=== PATIENT | female | born 1960 | race Caucasian/White ===

== ENCOUNTER → 2024-06-24 | Outpatient (CLI) | payer MEDICARE, MEDICAID, SELFPAY ==
--- NOTE | 2024-06-24 09:02 | XR_ITS ---
EXAMINATION: Cervical spine, 5 views Technique: Cervical spine AP, AP odontoid, lateral, bilateral obliques, 5 views Exam date and time: June 24, 2024 0915 hours INDICATIONS: Neck pain years. FINDINGS: Straightening normal cervical lordosis No cervical fracture Advanced degenerative disc disease C4-C5, C5-C6, C6-C7 with moderate bilateral neural foraminal stenosis at these levels The odontoid is intact IMPRESSION: Advanced degenerative disc disease C4-C5, C5-C6, C6-C7
== END | disposition home or self-care (01) ==
PROVIDERS: PCP Family Medicine; Referring Provider Physician Assistant; Visit Provider Physician Assistant
DX: M50.321 Other cervical disc degeneration at C4-C5 level (principal)
CPT/HCPCS: 72050

== ENCOUNTER 2025-04-07 17:02 | Emergency (ER) | payer MEDICARE, SELFPAY ==
[2025-04-07 17:25] VITALS: BP 107/60; PULSE 86; RESP 20; TEMP 37.1; O2SAT 97
--- NOTE | 2025-04-07 17:29 | EKG_ITS ---
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
--- NOTE | 2025-04-07 17:29 | XR_ITS ---
Examination: PA lateral chest 2 views Technique: Upright PA lateral chest 2 views Date and time: April 07, 2025, 1741 hrs. Comparison 04/12/2024. Indications: Chest pain today. Findings: Pneumonia left base and lingular segment. No significant cardiac enlargement. Right lung clear. Prominent osteopenia. Impression: Pneumonia left base and lingular segment left upper lobe.
--- NOTE | 2025-04-07 17:29 | PD.EDRME ---
Rapid Medical Screening Exam RME Arrival date/time: 04/07/25 17:02 64-year-old female with a history of COPD, hypertension, hyperlipidemia presents to the emergency room with a chief complaint of left-sided sternal 8 out of 10 chest pain that radiates to the left arm, shortness of breath x 2 days I have greeted and performed a focused initial assessment of this patient. A comprehensive ED assessment and evaluation of the patient, analysis of all test results, and completion of the medical decision making process will be conducted by additional ED providers. Chief Complaint: Chest Pain Time Seen by Provider: 04/07/25 17:09 Vital signs: Vital Signs Temperature 98.7 F 04/07/25 17:25 Pulse Rate 86 04/07/25 17:25 Respiratory Rate 20 04/07/25 17:25 Blood Pressure 107/60 04/07/25 17:25 Pulse Oximetry (%) 97 04/07/25 17:25 Oxygen Delivery Method Room Air 04/07/25 17:25 Vital signs reviewed by provider: Yes
[2025-04-07 17:51] LABS: Basophils # (Auto) 0.1 Thou/mm3 (0.0-0.2); Basophils % (Auto) 0 % (0-2.5); Eosinophils # (Auto) 0.2 Thou/mm3 (0.0-0.5); Eosinophils % (Auto) 1 % (0-10); Hematocrit 41.3 % (36.0-46.0); Hemoglobin 14.0 g/dL (12.0-16.0); Immature Granulocytes Auto 0.14 Thou/mm3 (0.00-0.00); Lymphocytes # (Auto) 1.8 Thou/mm3 (1.0-4.8); Lymphocytes % (Auto) 13 % (10-50); Mean Corpuscular HGB Conc 33.9 g/dl (31.0-37.0); Mean Corpuscular Hemoglobin 29.3 pg (25.0-35.0); Mean Corpuscular Volume 86 fL (80-100); Monocytes # (Auto) 1.0 Thou/mm3 (0.0-0.8); Monocytes % (Auto) 7 % (0-12); Neutrophils # (Auto) 10.7 Thou/mm3 (1.8-7.7); Neutrophils % (Auto) 78 % (37-80); Nucleated Red Blood Cell # 0.00 Thou/mm3 (0.00-0.00); Nucleated Red Blood Cell % 0 /100 WBC (0); Platelet Count 218 Thou/mm3 (140-440); RDW Standard Deviation 40.1 fL (36.4-46.3); Red Blood Count 4.78 Miln/mm3 (4.00-5.20); White Blood Count 13.8 Thou/mm3 (3.6-11.0)
[2025-04-07 18:03] LABS: INR 1.0 (0.9-1.3); Partial Thromboplastin Time 20.8 Seconds (22.0-36.0); Prothrombin Time 10.6 Seconds (9.0-12.2)
[2025-04-07 18:05] LABS: Collection Type, Urine Clean Catch
[2025-04-07 18:05] LABS: B-Type Natriuretic Peptide < 20 pg/mL (0-100)
[2025-04-07 18:07] LABS: Alanine Aminotransferase 13 U/L (10-49); Albumin, Serum 4.5 gm/dL (3.4-4.8); Albumin/Globulin Ratio 2.1 (1.2-2.2); Alkaline Phosphatase 86 U/L (46-116); Anion Gap 8 (7-16); Aspartate Amino Transferase 21 U/L (0-34); BUN/Creatinine Ratio 28 Ratio (12-20); Bilirubin,Total 0.2 mg/dL (0.3-1.2); Blood Urea Nitrogen 28 mg/dL (9-23); Calcium 10.7 mg/dL (8.3-10.6); Calcium (Corrected) 10.7 mg/dL (8.5-10.1); Carbon Dioxide 31.8 mMol/L (20.0-31.0); Chloride 100 mMol/L (98-107); Creatinine (Component) 1.0 mg/dL (0.6-1.3); Estimated Creatinine Clearance 53.8 mL/min (>60); Globulin 2.1 gm/dL (2.3-3.5); Glucose 163 mg/dL (74-106); Magnesium 1.6 mg/dL (1.6-2.6); Osmolality,Calculated 288 (275-295); Potassium 3.8 mMol/L (3.4-5.1); Sodium 140 mMol/L (136-145); Total Protein 6.6 gm/dL (5.7-8.2); Troponin I < 0.020 ng/mL (0.0-0.045); eGFR > 60 See Note
[2025-04-07 18:17] LABS: Bilirubin,Urine Negative (Negative); Blood,Urine Negative (Negative); Clarity,Urine Clear (Clear/Hazy); Color,Urine Yellow (Lt Yel-Yel); Culture Indicated,Urine Not Indicated; Glucose, Urine Negative (Negative); Ketones,Urine Negative (Negative); Leukocyte Esterase,Urine Negative (Negative); Nitrite,Urine Negative (Negative); PH,Urine 6.5 (5.0-7.0); Protein,Urine Negative (Neg - Trace); RBC,Urine < 1 /hpf (0-3); Specific Gravity,Urine 1.013 (1.001-1.035); Squamous Epithelial Cell,Urine 1 /hpf (0-5); Urobilinogen,Urine Negative mg/dL (0.0-1.0); WBC,Urine < 1 /hpf (0-5)
[2025-04-07 18:23] LABS: Amphetamine/Methamp Scrn,U Negative (Negative); Barbiturate Screen,Urine Negative (Negative); Benzodiazepines Screen,Urine Negative (Negative); Benzoylecgonine Screen, Ur Negative (Negative); Fentanyl Screen,Urine Negative (Negative); Opiate Screen,Urine Negative (Negative); THC Screen,Urine Negative (Negative)
--- NOTE | 2025-04-07 18:57 | PD.EDCHEST ---
ED Chest Pain RME/HPI General Chief Complaint: Chest Pain Stated Complaint: CHEST/BACK PAIN; STAGE 4 COPD Time Seen by Provider: 04/07/25 17:09 Arrival date/time: 04/07/25 17:02 RME / HPI RME / HPI narrative: 04/07/25 17:02 64-year-old female with a history of COPD, hypertension, hyperlipidemia presents to the emergency room with a chief complaint of left-sided sternal 8 out of 10 chest pain that radiates to the left arm, shortness of breath x 2 days I have greeted and performed a focused initial assessment of this patient. A comprehensive ED assessment and evaluation of the patient, analysis of all test results, and completion of the medical decision making process will be conducted by additional ED providers. ------ See [facility] for Dr. Dominique's HPI documentation. Related Data Home Medications ?Medication ?Instructions ?Recorded ?Confirmed Albuterol Sulfate HFA (INHALER) 2 puff inhalation 6 TIMES DAILY 08/25/14 04/12/24 (PROVENTIL HFA (INHALER)) PRN WHEEZING #0 inhalations Cyclobenzaprine * (FLEXERIL *) 10 mg PO TID #0 tabs 08/25/14 04/12/24 albuterol sulfate 2.5 mg/3 mL 2.5 mg HHN 6 TIMES DAILY PRN 08/25/14 04/12/24 (0.083 %) solution for nebulization Shortness Of Breath #0 ea estradiol 1 mg tablet (Estrace) 1 mg PO QDAY #0 tabs 08/25/14 04/12/24 gabapentin 600 mg tablet 800 mg PO BID #0 tabs 08/25/14 04/12/24 amlodipine 5 mg tablet 5 mg PO DAILY 10/19/17 04/12/24 atorvastatin 40 mg tablet 40 mg PO QDAY 10/19/17 04/12/24 docusate sodium 250 mg capsule 250 mg PO QDAY 10/19/17 04/12/24 (Stool Softener) montelukast 10 mg tablet 10 mg PO DAILY 10/19/17 04/12/24 omeprazole 40 mg capsule,delayed 40 mg PO DAILY 10/19/17 04/12/24 release tizanidine 4 mg capsule 4 mg PO HS 10/19/17 04/12/24 trazodone 50 mg tablet 100 mg PO HS PRN sleeplessness 10/19/17 04/12/24 lisinopril 20 mg PO QDAY 03/09/19 04/12/24 ipratropium 0.5 mg-albuterol 3 mg 3 ml inhalation Q8H 04/06/19 04/12/24 (2.5 mg base)/3 mL nebulization soln oxycodone-acetaminophen 10 mg-325 1 tab PO Q8H PRN Pain 04/06/19 04/12/24 mg tablet propranolol 10 mg tablet 10 mg PO BID 04/06/19 04/12/24 venlafaxine 100 mg tablet 75 mg PO BID 04/06/19 04/13/24 fluticasone furoate 100 inhalation 04/13/24 mcg-vilanterol 25 mcg/dose inhalation powder (Breo Ellipta) theophylline 300 mg 150 mg PO BID 04/13/24 04/13/24 tablet,extended release,12 hr Previous Rx's ?Medication ?Instructions ?Recorded Albuterol Sulfate/Ipratropium NEB 3 ml HHN Q4HR PRN SHORTNESS OF 08/25/17 * (DUONEB *) BREATH ##1 ipratropium 0.5 mg-albuterol 3 mg 3 ml inhalation QID PRN shortness 04/07/19 (2.5 mg base)/3 mL nebulization of breath #90 mL soln albuterol sulfate 90 mcg/actuation 2 puff inhalation Q6H PRN 04/07/25 aerosol inhaler shortness of breath or wheezing #1 unit levofloxacin 500 mg tablet 500 mg PO QDAY 7 days #7 tabs 04/07/25 Allergies Allergy/AdvReac Type Severity Reaction Status Date / Time erythromycin base Allergy Severe Hives Verified 04/07/25 17:05 ketorolac Allergy Severe Hives Verified 04/07/25 17:05 Penicillins Allergy Severe Anaphylaxis Verified 04/07/25 17:05 Review of Systems Review of Systems Systems Reviewed: All systems reviewed, normal except as documented Past Medical History Past Medical History NEUROLOGIC: Negative Neurological Disorders or Seizures CARDIAC: Positive Cardiac Disorders, Hypercholesterolemia and Hypertension; Negative Congestive Heart Failure RESPIRATORY: Positive Chronic Obstructive Pulmonary Disease (COPD), Asthma and Pneumonia GASTROINTESTINAL: Positive Gastrointestinal Disorders, Hepatitis, Ulcer and Gastroesophageal Reflux Disease GENITOURINARY: Positive Genitourinary Disorders and Renal Disease REPRODUCTIVE: Positive Previous Pregnancies MUSCULOSKELETAL: Positive Musculoskeletal Disorders, Arthritis and Degenerative Disk Disease ENT: Positive Ear Infection ENDOCRINE: Negative Endocrine Disorders, Diabetes Mellitus Type 1 or Diabetes Mellitus Type 2 HEMATOLOGIC: Positive Blood Disorders and Anemia; Negative Sickle Cell Disease PSYCHO/SOCIAL: Positive Psychiatric Problems, Schizophrenia, Depression and Anxiety OTHER HISTORY: Positive Chicken Pox, Measles and Mumps; Negative Autoimmune Disease, Blood Transfusions, Blood Transfusion Reaction, Anesthesia Reactions or Cancer Family History FAMILY HISTORY: Positive Family Respiratory Disorders and Family Cardiac Disorders; Negative Family Psychiatric Problems, Family Gastrointestinal Problems, Family Cancer, Family Surgery or Family Anesthesia Reaction Surgical History SURGICAL: Positive Ear Surgery, Eye Surgery, Abdominal Surgery, Hysterectomy and Tubal Ligation Social History SMOKING STATUS: Former smoker SECOND HAND EXPOSURE: No SUBSTANCE USE: does not use ED Exam Narrative Physical exam: See MDM for Dr. Dominique's physical exam documentation. Course Quality Measures none Orders Category Date Time Status EKG (ED ONLY) *Do not use* NOW Care 04/07/25 17:29 Completed EKG (ED Only) Stat Exams 04/07/25 17:29 Draft XR chest 2V Stat Exams 04/07/25 17:29 Completed B-Type Natriuretic Peptide Stat Lab 04/07/25 17:38 Completed CBC Stat Lab 04/07/25 17:38 Completed Comprehensive Metabolic Panel Stat Lab 04/07/25 17:38 Completed Drug Screen,Urine Stat Lab 04/07/25 17:50 Completed Magnesium Stat Lab 04/07/25 17:38 Completed Partial Thromboplastin Time Stat Lab 04/07/25 17:38 Completed Prothrombin Time with INR Stat Lab 04/07/25 17:38 Completed Troponin I Stat Lab 04/07/25 17:38 Completed Urinalysis, C/S if Indicated Stat Lab 04/07/25 17:50 Completed Levofloxacin [Levaquin] Med 04/07/25 19:19 Discontinued 500 mg PO X1 ONE Vital Signs Vital signs: Vital Signs Temperature 98.7 F 04/07/25 17:25 Pulse Rate 86 04/07/25 17:25 Respiratory Rate 20 04/07/25 17:25 Blood Pressure 107/60 04/07/25 17:25 Pulse Oximetry (%) 97 04/07/25 17:25 Oxygen Delivery Method Room Air 04/07/25 17:25 Chest Pain MDM Narrative MDM Narrative:: This section includes all my notes and documentations, including HPI, PE, and ED course. Vish Dominique MD HPI: 64yo female here with about a week history of worsening cough, productive cough, purulent sputum, and dyspnea. And left-sided chest pain for the past couple days. No other complaints. ROS: All negative except as documented in HPI. Physical Exam: General: Alert and oriented. No acute distress when remaining still. Eyes: Conjunctivae and lids clear. ENT: No nasal congestion. Neck: Supple. Heart: RRR. Lungs: No respiratory distress. Good air movement with bibasilar rales. Abdomen: Soft and nontender. Skin: Warm and dry. Neuro: Alert and oriented X 3. I reviewed all diagnostic test results. My interpretation of the EKG is sinus rhythm with nonspecific ST-T changes. My interpretation of the chest x-ray is left-sided infiltrates. Blood tests unremarkable. Urine tests unremarkable. At this point, diagnoses include: Pneumonia Treatment here included: Levaquin Recommended outpatient care. Based on my best medical judgment, made decision no further evaluation or treatment indicated at this time. Patient understands and agrees to the discharge instructions customized and printed, see below. Discharge instructions from Dr. Dominique: --No physical exertion for 3 days to help rest the lungs. ?No smoking or exposure to smoking or pets or dust or cold or humidity. --Levaquin to kill the germs causing the pneumonia. --Albuterol 2 puffs every 4-6 hours for 3 days to help keep the airways open. Then as needed for cough or shortness of breath. --See a private doctor next week if not completely better. --Seek immediate medical care with worsening or with any concerns. Vish Dominique MD Patient data External records reviewed:: [facility] previous records (Per chart review, patient was admitted here on 04/11/24 for abdominal pain.) Clinical information provided by:: patient Social determinants that could affect healthcare access:: none Patient has the following chronic illnesses:: COPD, HTN, depression, anxiety and neuropathy How is presenting disease/condition affected by chronic disease/condition?: uneffected by Evaluation data The following diagnostics were reviewed and interpreted by me:: lab results, radiology exam(s) and EKG tracing(s) (My interpretation of the EKG is: Sinus rhythm (77 bpm) with nonspecific ST-T changes. Vish Dominique MD) Lab and/or radiology exams considered but not ordered:: none Interpretation Summary: I reviewed all diagnostic test results. My interpretation of the EKG is sinus rhythm with nonspecific ST-T changes. My interpretation of the chest x-ray is left-sided infiltrates. Blood tests unremarkable. Urine tests unremarkable. Medications / Prescriptions Medications or Prescriptions considered but not ordered:: none Medication administrations:: Medication Administration History Discontinued Medications Levofloxacin (Levofloxacin 250 Mg Tablet) 500 mg PO X1 ONE Stop: 04/07/25 19:20 Last Admin: 04/07/25 19:34 Dose: 500 mg Documented By: ION Pulliam Consultations Consultation(s) initiated? (list below): No Diagnosis Chest Pain Differential Diagnosis: atypical chest pain, st elevation myocardial infarction, costochondritis and other (NSTEMI, pneumonia) Most likely diagnosis given after review of the tests above:: Pneumonia Admission Indicated Admission indicated?: not indicated Explain why admission is indicated or not indicated:: With no condition needing emergent intervention, there was no indication for admission. Admission Request Was there a request for admission?: No Disposition Plan Disposition Plan: Discharge Discharge Attestation Discharge Attestation: The patient and all family members were given an opportunity to ask questions and understood the discharge instructions. Discharge instructions specifically effects, indications for sooner follow up or return to the emergency department, and the expected course of current diagnosis. Patient condition: Stable Discharge Plan Plan Patient Disposition: HOME (Self Care) Prescriptions/Referrals Prescriptions/Med Rec: New levofloxacin 500 mg tablet 500 mg PO QDAY 7 Days Qty: 7 0RF albuterol sulfate 90 mcg/actuation HFA aerosol inhaler 2 puff inhalation Q6H PRN (Reason: shortness of breath or wheezing) Qty: 1 0RF No Action lisinopril 20 mg PO QDAY Patient Comments: not taking anymore Albuterol Sulfate HFA (INHALER) (PROVENTIL HFA (INHALER)) 8.5 GM HFA.AER.AD 2 puff Inhalation 6 TIMES DAILY PRN (Reason: WHEEZING) Qty: 0 gabapentin 600 MG tablet 800 mg PO BID Qty: 0 albuterol sulfate 2.5 MG/3 ML solution for nebulization 2.5 mg HHN 6 TIMES DAILY PRN (Reason: Shortness Of Breath) Qty: 0 estradiol [Estrace] 1 MG tablet 1 mg PO QDAY Qty: 0 Cyclobenzaprine * (FLEXERIL *) 10 MG tablet 10 mg PO TID Qty: 0 Albuterol Sulfate/Ipratropium NEB * (DUONEB *) 3 ML AMPUL.NEB 3 ml HHN Q4HR PRN (Reason: SHORTNESS OF BREATH) Qty: 1 0RF atorvastatin 40 mg Tablet 40 mg PO QDAY trazodone 50 mg Tablet 100 mg PO HS PRN (Reason: sleeplessness) amlodipine 5 mg Tablet 5 mg PO DAILY Patient Comments: not taking anymore. omeprazole 40 mg Capsule,Delayed Release(Dr/Ec) 40 mg PO DAILY montelukast 10 mg Tablet 10 mg PO DAILY docusate sodium [Stool Softener] 250 mg Capsule 250 mg PO QDAY tizanidine 4 mg Capsule 4 mg PO HS oxycodone-acetaminophen 10-325 mg Tablet 1 tab PO Q8H PRN (Reason: Pain) ipratropium-albuterol 0.5 mg-3 mg(2.5 mg base)/3 mL Solution For Nebulization 3 ml INHALATION Q8H venlafaxine 100 mg Tablet 75 mg PO BID propranolol 10 mg Tablet 10 mg PO BID ipratropium-albuterol 0.5 mg-3 mg(2.5 mg base)/3 mL solution for nebulization 3 ml INH QID PRN (Reason: shortness of breath) Qty: 90 0RF fluticasone furoate-vilanterol [Breo Ellipta] 100-25 mcg/dose blister with device INHALATION Patient Comments: INHALE 1 PUFF BY MOUTH EVERY DAY theophylline 300 mg tablet extended release 12 hr 150 mg PO BID Patient Comments: TAKE 1/2 TABLET BY MOUTH EVERY 12 HOURS Referrals: Kyler Merlos MD [Primary Care Provider, Family Practice] - In 1 week Problem List Clinical Impression: Pneumonia Patient/Caregiver Discharge Instructions Discharge Activity: activity as tolerated Education Materials: ED Pneumonia (Adult) Additional Instructions: Discharge instructions from Dr. Dominique: --No physical exertion for 3 days to help rest the lungs. ?No smoking or exposure to smoking or pets or dust or cold or humidity. --Levaquin to kill the germs causing the pneumonia. --Albuterol 2 puffs every 4-6 hours for 3 days to help keep the airways open. Then as needed for cough or shortness of breath. --See a private doctor next week if not completely better. --Seek immediate medical care with worsening or with any concerns. Print Language: Serbian Stand Alone Forms: Shanda Award Info., Patient Portal Info Letter
[2025-04-07] MEDS: LEVOFLOXACIN 250 MG TABLET 500 MG PO (19:34)
== END 2025-04-07 19:38 | disposition home or self-care (01) ==
PROVIDERS: Nurse Practitioner Family; Emergency Provider Emergency Medicine; PCP Family Medicine
DX: J44.0 Chronic obstructive pulmonary disease with (acute) lower respiratory infection (principal); J18.9 Pneumonia, unspecified organism; Z87.891 Personal history of nicotine dependence; I10 Essential (primary) hypertension; E78.00 Pure hypercholesterolemia, unspecified
CPT/HCPCS: 36415; 71046; 80053; 80307; 81001; 83735; 83880; 84484; 85025; 85610; 85730; 93005; 99283; A9270